=== PATIENT | male | born 1950 | race African-American/Black ===

== ENCOUNTER 2020-05-23 18:59 | Inpatient (IN) | payer OTHER, MEDICAID ==
[~2020-05-23] VITALS: Ht 193 cm; Wt 68.0 kg
[2020-05-23 21:06] LABS: BASOPHILS % 0.4 % (0.0-2.0); EOSINOPHILS % 0.9 % (0.0-5.0); HEMATOCRIT. 37.3 % (42.0-52.0); HEMOGLOBIN. 12.7 g/dL (14.0-18.0); LYMPHOCYTES % 16.1 % (20.0-50.0); MEAN CORPUSCULAR HEMOGLOBIN 30.9 pg (28.0-32.0); MEAN CORPUSCULAR VOLUME 90.9 fL (80.0-94.0); MEAN PLATELET VOLUME 7.4 fl (7.4-10.4); MONOCYTES % 8.4 % (2.0-8.0); NEUTROPHILS % 74.2 % (40.0-76.0); PLATELET 307 x1000/uL (130-400); RED BLOOD CELL COUNT 4.11 mill/uL (4.7-6.1); RED CELL DISTRIBUTION WIDTH 12.1 % (11.6-14.6)
[2020-05-23 21:13] LABS: CHLORIDE 94 mEq/L (98-107)
[2020-05-23 21:18] LABS: ETHANOL BLOOD < 10 mg/dL
[2020-05-23] MEDS ORDERED: SODIUM CHLORIDE 0.9% 1,000 ML IV ONE ×2 (21:30)
[2020-05-24 01:05] LABS: CLARITY URINE CLEAR (CLEAR); COLOR URINE YELLOW (YELLOW); KETONES URINE NEGATIVE (NEGATIVE); LEUKOCYTE ESTERASE URINE NEGATIVE (NEGATIVE); NITRITE URINE NEGATIVE (NEGATIVE); OCCULT BLOOD URINE TRACE (NEGATIVE); PROTEIN URINE 1+ (NEGATIVE); SPECIFIC GRAVITY URINE 1.017 (1.005-1.030); UROBILINOGEN URINE 0.2 E.U./dL (0.2-1.0)
[2020-05-24 01:30] LABS: *AMPHETAMINES SCREEN URINE PRESUMTIVE POSITIVE (NEGATIVE); *BARBITURATES SCREEN URINE NEGATIVE (NEGATIVE); *BENZODIAZEPINES SCREEN URINE NEGATIVE (NEGATIVE)
[2020-05-24 01:31] LABS: *COCAINE SCREEN URINE NEGATIVE (NEGATIVE); CANNABINOID URINE SCREEN PRESUMTIVE POSITIVE (NEGATIVE); METHADONE URINE SCREEN NEGATIVE (NEGATIVE); OPIATES URINE SCREEN PRESUMTIVE POSITIVE (NEGATIVE); PHENCYCLIDINE URINE SCREEN NEGATIVE (NEGATIVE)
[2020-05-24] MEDS: SODIUM CHLORIDE 0.9% 1,000 ML IV SCH ×2 (10:00→16:31)
[2020-05-24] MEDS ORDERED: CLONIDINE 0.1MG TABLET PO PRN (10:00)
[2020-05-24] MEDS ORDERED: DOCUSATE SODIUM 100MG CAPSULE PO PRN (10:00)
[2020-05-24] MEDS ORDERED: GUAIFENESIN 200MG/10ML SUGAR FREE UDC PO PRN (10:00)
[2020-05-24] MEDS ORDERED: MAGNESIUM/ALUMINUM HYDROXIDE/SIMETHICONE 30ML UDC PO PRN (10:00)
[2020-05-24] MEDS ORDERED: ACETAMINOPHEN 325MG TABLET PO PRN (10:00)
[2020-05-24] MEDS ORDERED: ONDANSETRON HCL 4MG/2ML INJ IV PRN (10:00)
[2020-05-24] MEDS ORDERED: ENOXAPARIN 30MG/0.3ML SYR SUBCUT SCH (10:00)
[2020-05-24 10:31] VITALS: BP 114/64
[2020-05-24 12:19] LABS: LDL CHOLESTEROL 60 mg/dL (5-100)
[2020-05-24 12:20] LABS: CREATINE KINASE 222 IU/L (39-308); HDL CHOLESTEROL 64 mg/dL (40-59)
[2020-05-24 16:00] VITALS: BP 121/70
[2020-05-24] MEDS ORDERED: LISI-604 MT (18:57)
[2020-05-25 17:06] LABS: ANTI-NUCLEAR ANTIBODIES DIRECT Positive (Negative)
== END 2020-05-24 20:04 | disposition left against medical advice (07) | DRG 683 ==
LOC: ER 18:59 → 6EST 22:06 → EDBEDREQTM 22:08 → EDBEDREQ 22:08 → ENRESERV 05-24 08:35
PROVIDERS: ADMIT Hospitalist; ATTEND Hospitalist
DX: N17.9 Acute kidney failure, unspecified (principal); E87.1 Hypo-osmolality and hyponatremia; Z68.1 Body mass index [BMI] 19.9 or less, adult; F17.200 Nicotine dependence, unspecified, uncomplicated; Z59.0 Homelessness; Z53.29 Procedure and treatment not carried out because of patient's decision for other reasons; N18.9 Chronic kidney disease, unspecified; F19.10 Other psychoactive substance abuse, uncomplicated; I12.9 Hypertensive chronic kidney disease with stage 1 through stage 4 chronic kidney disease, or unspecified chronic kidney disease; R63.6 Underweight; I95.9 Hypotension, unspecified
CPT/HCPCS: 36415; 71045; 76770; 80053; 80061; 80305; 80307; 80320; 80329; 81003; 82550; 83930; 83935; 84443; 84484; 85025; 86038; 86160; 93005; 93970; 99291; J1650; J7030; G0480

== ENCOUNTER 2020-08-07 10:30 | Emergency (ER) | payer OTHER, MEDICAID ==
[~2020-08-07] VITALS: Ht 193 cm; Wt 73.0 kg
[~2020-08-07 10:30] MED LIST: LISI-604 MT
[2020-08-07] MEDS ORDERED: BACITRACIN ZINC OINT UDPKT TOP ONE (11:15)
[2020-08-07] MEDS ORDERED: IBUPROFEN 600MG TABLET PO ONE (11:15)
[2020-08-07 12:18] VITALS: BP 142/81
== END 2020-08-07 12:20 | disposition home or self-care (01) ==
LOC: ER 10:30
DX: L03.113 Cellulitis of right upper limb (principal); I10 Essential (primary) hypertension
CPT/HCPCS: 99283